=== PATIENT | male | born 1995 | race Two or more races ===

== ENCOUNTER 2018-07-08 23:52 | Emergency (ER) | payer SELFPAY ==
[~2018-07-08] VITALS: Ht 177.8 cm; Wt 59.0 kg
[2018-07-09] MEDS ORDERED: LORazepam 2MG/ML-1ML VIAL IV ONE (01:00)
[2018-07-09 03:18] VITALS: BP 100/55
== END 2018-07-09 04:08 | disposition home or self-care (01) ==
LOC: ER 23:52 → EDBD 23:52 → ER 07-09 04:08
DX: R06.4 Hyperventilation (principal); J45.909 Unspecified asthma, uncomplicated
CPT/HCPCS: 71045; 96374; 99283; J2060